=== PATIENT | male | born 1945 | race Caucasian/White ===

== ENCOUNTER 2018-04-27 21:58 | Emergency (ER) | payer MEDICARE, OTHER ==
[~2018-04-27] VITALS: Ht 172.7 cm; Wt 71.8 kg
[2018-04-27 22:05] VITALS: Ht 172.7 cm; Wt 71.8 kg
[2018-04-27] MEDS ORDERED: ALBUTEROL 0.5% (NEB) 2.5 MG/0.5 ML AMP INH STA (22:52)
[2018-04-27] MEDS ORDERED: IPRATROPIUM (NEB) 0.5 MG/2.5 ML AMP INH STA (22:52)
[2018-04-27] MEDS ORDERED: METHYLPREDNISOLONE 125 MG INJ IV STA (22:52)
--- NOTE | 2018-04-28 01:25 | ERD ---
ER Documentation Chief Complaint Chief Complaint Cough, intoxication HPI This is a 72-year-old male with a past medical history of COPD, alcohol abuse, homelessness who is presenting to the emergency department for cough and alcohol intoxication. The patient was reportedly sleeping outside of a 711 when a bystander called an ambulance. On initial rate clerk assessment, the patient was unable to ambulate safely and was stumbling about. This patient smells of alcohol. The patient admits to drinking 1/2 pint of vodka. He also endorses a chronic progressive nonproductive cough with shortness of breath and wheezing, exacerbated by smoking. The patient denies any fever or chills. He reports that he does not feel sick. He does endorse mild chest tightness without pain. He denies nausea or vomiting. The patient has had no headache or vision changes. The patient does not endorse neck or back pain. The patient denies l ightheadedness or dizziness. The patient has had no chest pain. The patient denies abdominal pain. The patient denies changes to bowel movements or urination. The patient has had no focal deficits. The patient has had no weakness or numbness or tingling to the face or extremities. ROS All systems reviewed and are negative except as per history of present illness. Medications Home Meds Active Scripts Albuterol Sulfate* (Ventolin HFA*) 18 Gm Hfa.aer.ad, 2 PUFF INHALATION Q4H, #1 INHALER Prov:VALERIE HERNÁNDEZ MD 04/28/18 Prednisone* (Prednisone*) 20 Mg Tab, 40 MG PO DAILY for 4 Days, TAB Prov:VALERIE HERNÁNDEZ MD 04/28/18 Allergies Allergies: Coded Allergies: No Known Drug Allergies (Verified Allergy, Unknown, 04/27/18) PMhx/Soc Hx Respiratory Disorders: Yes Hx Cardiac Disorders: No Hx Alcohol Use: Yes Hx Tobacco Use: Yes Smoking Status: Current every day smoker FmHx Family History: No diabetes Physical Exam Vitals Vital Signs Date Temp Pulse Resp B/P (MAP) Pulse Ox O2 O2 Flow FiO2 Time Delivery Rate 04/28/18 98.1 89 18 132/76 97 Room Air 02:29 (94) 04/28/18 98.2 96 16 141/76 98 Room Air 00:29 (97) 04/27/18 106 20 96 21 23:08 04/27/18 98.1 108 18 136/78 98 Room Air 22:39 (97) 04/27/18 97.6 120 18 114/75 97 22:05 (88) Physical Exam Const: No apparent distress, well-developed, well-nourished Head: Normocephalic, Atraumatic Eyes: Normal Conjunctiva. Extraocular movements intact. Pupils equal, round and reactive to light ENT: Normal External Ears, Nose and Mouth. Neck: Full range of motion. No meningismus. Resp: Diffuse wheezes. No rales or rhonchi Cardio: Regular rate and rhythm. No murmurs, rubs or gallops Abd: Soft, non tender, non distended. Normal bowel sounds Skin: No petechiae or rashes Back: No midline tenderness. No CVA tenderness Ext: No cyanosis, or edema Neur: Awake and alert, oriented 3. Cranial nerves intact. No facial droop. Normal strength, sensation and coordination. Psych: Intoxicated Result Diagram: 04/27/18 2310 04/27/18 2310 Results 24 hrs Laboratory Tests Test 04/27/18 23:09 04/27/18 23:10 Ethyl Alcohol Level 173.0 mg/dl White Blood Count 7.7 10^3/ul Red Blood Count 5.07 10^6/ul Hemoglobin 15.7 g/dl Hematocrit 45.1 % Mean Corpuscular Volume 89.0 fl Mean Corpuscular Hemoglobin 31.0 pg Mean Corpuscular Hemoglobin Concent 34.8 g/dl Red Cell Distribution Width 12.1 % Platelet Count 256 10^3/UL Mean Platelet Volume 9.1 fl Immature Granulocytes % 0.100 % Neutrophils % 48.4 % Lymphocytes % 37.7 % Monocytes % 12.0 % Eosinophils % 1.3 % Basophils % 0.5 % Nucleated Red Blood Cells % 0.0 /100WBC Immature Granulocytes # 0.010 10^3/ul Neutrophils # 3.7 10^3/ul Lymphocytes # 2.9 10^3/ul Monocytes # 0.9 10^3/ul Eosinophils # 0.1 10^3/ul Basophils # 0.0 10^3/ul Nucleated Red Blood Cells # 0.0 10^3/ul Sodium Level 140 mmol/L Potassium Level 3.9 mmol/L Chloride Level 101 mmol/L Carbon Dioxide Level 24 mmol/L Anion Gap 15 Blood Urea Nitrogen 9 mg/dl Creatinine 0.67 mg/dl Est Glomerular Filtrat Rate mL/min mL/min Glucose Level 107 mg/dl Calcium Level 9.7 mg/dl Current Medications Medications Dose Sig/Kei Start Time Status Last (Trade) Ordered Route PRN Stop Time Admin Dose Reason Admin Ipratropium 1.5 mg ONCE STAT 04/27/18 DC 04/27/18 [place] [facility] 22:52 23:08 (Atrovent 04/27/18 0.02% 22:54 (Neb)) Albuterol 15 mg ONCE STAT 04/27/18 DC 04/27/18 (Proventil INH 22:52 23:07 0.5% (Neb)) 04/27/18 22:54 125 mg ONCE STAT 04/27/18 DC 04/27/18 Methylprednis IV 22:52 23:24 olone Sodium 04/27/18 Succinate 22:54 (Solu-Medrol) Procedures/MDM MDM The patient's presentation warrants further investigation. Previous medical records, if available, were reviewed. LABS The patient's laboratory testing was obtained and reviewed. No emergent treatment was required unless described below. CBC: No E/o of systemic infection or severe anemia or thrombocytopenia BMP: No E/o severe acidosis or alkalosis or renal failure or diabetic ketoacidosis Tox: E/o alcohol abuse. EKG EKG read by me: Rate/Rhythm: Sinus rhythm at 97 bpm with occasional PACs Intervals: Normal Clyo: Normal Impression: No evidence of acute ischemia. IMAGING Imaging and Radiology interpretation reviewed. CXR FINDINGS: Low lung volumes. Normal cardiac and mediastinal configuration. No CHF or hilar enlargement. Lungs are clear. IMPRESSION: Low lung volumes. No acute disease. Electronically viewed and signed by Physician Delta on 04/28/2018 00:51 TREATMENT/DISPOSITION The patient presents with multiple complaints. There is evidence of alcohol intoxication. The patient is currently not steady on his feet. The patient will be serially assessed until clinical sobriety. The patient does endorse a chronic cough with shortness of breath and wheezing. The patient was treated with nebulized albuterol ipratropium in addition to IV Solu-Medrol with improvement of his shortness of breath. The patient will be given prescriptions for albuterol and prednisone. The patient's chest xray does not reveal pneumonia or pneumothorax or pleural effusions or pulmonary edema. She does not have a widened mediastinum and does not have signs or symptoms concerning for thoracic aortic aneurysm or d issection. The patient does not have pneumomediastinum or signs concerning for esophageal tear or rupture. The patient has no clinical or radiographic signs of pericardial effusion or tamponade. The patient does not have pneumoperitoneum and I have decreased suspicion of viscus perforation as possible referred pain. The patient does not have a history of heart failure and I have low suspicion for this. The patient does not have a diagnosis of COPD and is not wheezing today. The patient is not tachypneic or hypoxic. The patient is breathing comfortably and without pleuritic pain. The patient is not on hormonal therapy. The patient has no history of clotting or bleeding disorders. The patient has no calf tenderness. The patient has had no hemoptysis. I have decreased suspicion for PE. The patient's EKG is reassuring. He denies chest pain or other symptoms concerning for a cardiac pathology. I have low suspicion for acute coronary syndrome. OBSERVATION NOTE Time: 4 hours Family Hx: No diabetes Evaluation: Multiple exams showed improving symptoms and no evidence of decompensation. DISCHARGE The patient was signed out to Dr. Walter at 6 AM on April 28, 2018 pending clinical sobriety. I do anticipate discharge. No emergent diagnoses were identified. The patient will be instructed to follow-up with a primary care physician in 1-3 days. The patient will be given strict precautions with which to return to the emergency department. Prescriptions: Albuterol, Prednisone The patient's blood pressure was elevated at greater than 120/80 while in the emergency department. The patient was otherwise stable with no evidence of hypertensive urgency or emergency. The patient does not require admission for blood pressure control. I have discussed with the patient the risks of hypertension. I have instructed the patient to return to the ER for any new or worsening symptoms including chest pain, shortness of breath, headache, blurred vision, confusion, nausea, vomiting or LOC. I have advised the patient to follow up with the primary care physician for outpatient monitoring and treatment for hypertension in 1-3 days. Prescription Disclaimer: Inadvertent spelling and grammatical errors are likely due to EHR/dictation software use and do not reflect on the overall quality of patient care. Note that the electronic time recorded on this note does not necessarily reflect the actual time of the patient encounter. Departure Diagnosis: Primary Impression: Alcohol intoxication Complication of substance-induced condition: with unspecified complication Qualified Codes: F10.929 - Alcohol use, unspecified with intoxication, unspecified Additional Impressions: Cough COPD (chronic obstructive pulmonary disease) COPD type: chronic bronchitis Chronic bronchitis type: unspecified Qualified Codes: J42 - Unspecified chronic bronchitis Condition: VALERIE Ambrose MD Apr 28, 2018 01:25
[2018-04-28] MEDS ORDERED: PRED20TA PO (01:28)
[2018-04-28] MEDS ORDERED: ALBU18HF INHALATION (01:28)
--- NOTE | 2018-04-28 11:08 | NUR ---
PT EVALUATION AND DC , number 1 Evaluation Start Time 10:05 Evaluation Total Time 0 min Subjective Denies pain Pain Scale NUMERIC Pain Intensity 0 (0-10) Patient Stated Goal for Pain Relief 0 (0-10) Pain Level Comment N/A Pre Treatment Vital Signs Stable Yes - BP:144/78 HR:92 Exercise Assessment Label Bilat Lower Extremity Exercise Type Active ROM Additional Exercise Comments AP, KNEE FLEX, EXT, SAQ , LAQ SLR Supine to Sit Contact Guard Assist Transfer Sit to Stand Ability Contact Guard Assist Bed Mobility Sit to Supine Contact Guard Assist Bed Transfer Ability Contact Guard Assist Chair Transfer Ability Contact Guard Assist Sitting Tolerance 15 min Patient uses wheelchair Not Applicable Gait Assist Levels Contact Guard Assist Assistive Devices Front Wheel Walker Ambulation Distance 100 feet Additional Gait Comments ABNORMAL GAIT PATTERN , DECRESED STEP LENGTH ,OCC.SWAYS TO LT , RT SIDE , U Weight Bearing Assessment Label Bilat Lower Extremity Weight Bearing Status Full Weight Bearing Static Sitting Balance Good Dynamic Sitting Balance Good Standing Static Balance Good Dynamic Standing Balance Fair plus Additional Balance Assessments Comments FAIR PLUS . Safety Judgement Fair Activity Tolerance Good Post Treatment Pain Intensity 0 0-10 Quality Indicators Weak Cough Variance Documentation P/S SEE PT NOTE . PT Technical Record Comment PT EVALUATION AND DC , S: RN CLEARED PATIENT AGREEABLE , PATIENT ALERT AND ORIENTED TO SELF , DISORIENTED TO DAY, MONTH AND YEAR ABLE TO FOLLOW 1-2 STEP COMMANDS , OCC,ANXIOUS AND NEEDS VC'S TO RE-DIRECT HIM FOR SAFETY AND FALL PRECAUTION .O: PATIENT IS A 72 Y/O MALE WITH PMH: COPD, ALCOHOL ABUSE, PRESENTED TO ED , FOR COUGH AND ALCOHOL INTOXICATION , PATIENT REQUIRES CG A FOR SIT TO STAND , TRANSFERS GAIT TR W/FWW PERFORMED NOTED PATIENT HAS ABNORMAL GAIT PATTERN , DECREASED STEP LENGTH , UNEVEN STEPS AND OCC,SWAYS TO LT AND RT SIDE , REQUIRES VC'S FOR SAFETY, FALL PRECAUTION WELL GAIT NORMALIZATION .VS STABLE TOLERATED TREATMENT WELL , RN NOTIFIED PATIENT'S PARTICIPATION IN PT SESSION , PATIENT IS CLEARED TO AMBULATE WITH NS STAFF W/FWW . A: PATIENT CURRENTLY IS HOMELESS BUT WOULD LIKE TO RETURN TO [facility] , PARKS WORKER AND RN AWARE , PATIENT WILL BE DC TODAY. PATIENT NEED FWW AND IS NOT SAFE TO AMBULATE WITHOUT AD ,RN NOTIFIED . P: PT EVALUATION , ONLY .
[2018-04-28] MEDS ORDERED: ACETAMINOPHEN 325 MG TAB PO ONE (12:00)
[2018-04-28 14:40] VITALS: BP 134/72; PULSE 78; RESP 16
== END 2018-04-28 14:40 | disposition home or self-care (01) ==
LOC: E/R 21:58
DX: F10.929 Alcohol use, unspecified with intoxication, unspecified (principal); J44.9 Chronic obstructive pulmonary disease, unspecified; R40.2252 Coma scale, best verbal response, oriented, at arrival to emergency department; R40.2362 Coma scale, best motor response, obeys commands, at arrival to emergency department; R40.2142 Coma scale, eyes open, spontaneous, at arrival to emergency department; F17.210 Nicotine dependence, cigarettes, uncomplicated
CPT/HCPCS: 36415; 71045; 80048; 80307; 85025; 93005; 94644; 96374; 97161; 99285; G8978; G8979; J2930